=== PATIENT | male | born 1985 | race Caucasian/White ===

== ENCOUNTER 2020-04-25 07:50 | Outpatient (REF) | payer OTHER, SELFPAY | END 2020-04-25 07:51 | disposition home or self-care (01) | LOC: HO.LAB 07:50 | PROVIDERS: Visit Provider Internal Medicine | DX: Z20.822 Contact with and (suspected) exposure to COVID-19 (principal) | CPT/HCPCS: 36415; C9803; U0003; U0005 ==

== ENCOUNTER 2021-01-13 13:26 | Outpatient (REF) | payer OTHER, SELFPAY | END 2021-01-13 13:27 | disposition home or self-care (01) | LOC: HO.LAB 13:26 | PROVIDERS: Visit Provider Internal Medicine | DX: Z13.89 Encounter for screening for other disorder (principal) | CPT/HCPCS: C9803; U0003; U0005 ==

== ENCOUNTER 2021-01-15 08:02 | Outpatient (REF) | payer OTHER, SELFPAY ==
[2021-01-15 08:54] LABS: COVID-19 Test Positive (Negative)
== END 2021-01-15 08:03 | disposition home or self-care (01) ==
LOC: HO.LAB 08:02
PROVIDERS: Visit Provider Internal Medicine
DX: Z20.822 Contact with and (suspected) exposure to COVID-19 (principal)
CPT/HCPCS: 36415; 87635; C9803

== ENCOUNTER 2021-01-20 09:38 | Outpatient (REF) | payer OTHER, SELFPAY | END 2021-01-20 09:39 | disposition home or self-care (01) | LOC: HO.LAB 09:38 | PROVIDERS: Visit Provider Internal Medicine | DX: Z20.822 Contact with and (suspected) exposure to COVID-19 (principal) | CPT/HCPCS: C9803; U0003; U0005 ==

== ENCOUNTER 2022-04-21 07:45 | Emergency (ER) | payer MEDICAID, OTHER, SELFPAY ==
[2022-04-21] VITALS (8 sets, daily range): BP systolic 125–176; BP diastolic 76–119; PULSE 44–60; RESP 14–20; TEMP 35.8–36.8; O2SAT 98–99; BMI 35.7
--- NOTE | ~2022-04-21 | CT_ITS ---
EXAMINATION: CT HEAD WITHOUT CONTRAST CLINICAL INFORMATION: Dizziness COMPARISON: None TECHNIQUE: Contiguous axial imaging was performed from the skull base to vertex without intravenous administration of contrast. This CT examination was performed using dose optimization techniques as appropriate, variously including the following: *Automated exposure control *Adjustment of mA and/or kV according to patient size (this includes techniques or standardized protocols for targeted exams where dose is matched to indication/reason for exam; i.e. extremities or head) *Use of iterative reconstruction technique DLP: 747 mGy-cm FINDINGS: There is no midline shift. There is no mass effect. There is no hemorrhage. The basal cisterns appear patent. The posterior fossa is grossly within normal limits. There is no extra-axial collection. Whaley-white matter is grossly within normal limits. The ventricular system is within normal limits. Sinus disease noted in the maxillary sinuses. CT/CT head/brain wo IV con IMPRESSION: Negative acute noncontrast CT of the brain. If further evaluation is clinically warranted consider MR.
--- NOTE | 2022-04-21 07:54 | ECG_ITS ---
Test Reason : DISSINESS Blood Pressure : / mmHG Vent. Rate : 048 BPM Atrial Rate : 048 BPM P-R Int : 204 ms QRS Dur : 108 ms QT Int : 428 ms P-R-T Axes : 049 008 048 degrees QTc Int : 382 ms Sinus bradycardia Sinus Arrhythmia Normal ECG No previous ECGs available Referred By: Generic ED Physician Electronically Signed By:JUDY GIBBS
--- NOTE | 2022-04-21 08:07 | ED_ITS ---
HPI - Dizziness General Chief Complaint: Dizziness Stated Complaint: HBP/Dizziness Time Seen by Provider: 04/21/22 08:04 Source: patient Mode of arrival: ambulatory History of Present Illness HPI Narrative: 36-year-old male with a past medical history of substance abuse currently on methadone presenting to the ED complaining of intermittent room spinning dizziness worse with position changes x 4 days with associated intermittent headache. Admits symptoms last a few seconds and then resolve, intermittently throughout the day. Denies taking anticoagulation. Admits when to be stay ED last night, noted to be hypertensive during triage however LWT'd due to wait time. Denies history of hypertension or taking antihypertensive medications. Denies recent injury/fall or head trauma, vision change/loss, nausea/vomiting, paresthesias/numbness, weakness, CP/SOB MD elicited complaint: dizziness Related Data Previous Rx's Medication Instructions Recorded zpmoywencv-yunoflejeiypl-hmyplvzh 1 cap PO Q4-6H PRN headache #14 04/21/22 50 mg-300 mg-40 mg capsule caps (Fioricet) meclizine 25 mg tablet 25 mg PO TID PRN dizziness #14 tabs 04/21/22 Allergies Allergy/AdvReac Type Severity Reaction Status Date / Time No Known Allergies Allergy Unverified 11/01/19 15:49 [No Known Allergies*] Review of Systems Review of Systems: Constitutional: No Fever, No Chills, No Fatigue, No Malaise ENT/Mouth: No Ear Pain, No Nasal Congestion, No sore throat, No Rhinorrhea, No Swallowing Difficulty Eyes: No Eye Pain, No Swelling, No Redness, No Vision Changes Cardiovascular: No Chest Pain, No SOB, No Dyspnea on Exertion, No Orthopnea, No Edema, No Palpitations Respiratory: No Cough, No Sputum, No Dyspnea Gastrointestinal: No Nausea, No Vomiting, No Diarrhea, No Constipation, No Abdominal pain Genitourinary: No Dysuria, No Urinary Frequency, No Hematuria, No Urinary Incontinence/retention, No Hesitancy Musculoskeletal: No joint pain, No Myalgias, No Joint Swelling Skin: No Skin Lesions, No rash Neuro: No Weakness, No Numbness, No Paresthesias, No Loss of Consciousness, + Dizziness, + Headache Yes all other systems are reviewed and are negative Constitutional: Constitutional: Reports as per HPI Neurologic: Denies Abnormal speech present [facility] Past Medical History Attestation statement: The following information was validated with the patient. Social History Social History Smoked in Last 30 Days: No Advance Directives: No Advance Directives Information Provided: Yes Physical Exam Vital Signs: Vital Signs: Last Vital Signs Temp 97.7 F 04/21/22 14:35 Pulse 54 04/21/22 14:35 Resp 16 04/21/22 14:35 BP 143/81 H 04/21/22 14:35 Pulse Ox 98 04/21/22 14:35 O2 Del Method 04/21/22 14:35 BMI result Body Mass Index 35.7 Const: General: cooperative, healthy appearing and no acute distress Orientation/consciousness: patient oriented x3 Limitations: no limitations HEENT: Head: Yes normal to inspection and Yes atraumatic Ears: hearing gr ossly normal bilaterally General nose exam: Normal external nose present Face and sinus: Yes normal facial exam Throat: Yes posterior oropharynx normal, Yes tonsils normal and Yes uvula midline Eyes: General: appearance normal, both eyes and all related structures Pupils: Equal, round and reactive pupils present EOM: EOMs intact bilaterally Neck: Neck: Yes normal visual inspection, Yes no meningeal signs, Yes supple and No anterior neck swelling Resp: Effort & Inspection: normal respiratory effort and no respiratory distress Auscultation: clear to auscultation bilaterally Cardio: Rate: regular rate Heart sounds: S1 normal heart sound present and S2 normal heart sound present GI: Inspection: Yes normal to inspection Palpation (GI): Soft to palpation, nontender, no guarding and not rigid Skin: Rashes: no rashes Wounds: no wounds Neuro: General: patient oriented x3, gait normal, tone normal, moves all extremities, no meningeal signs, no focal motor deficits and CN's II-XI intact bilaterally Cranial nerves: Yes CN's II-XII intact bilaterally, Yes Equal, round and reactive pupils present and Yes Bilaterally intact EOM present Cognition (Neuro): normal cognition Speech: No Abnormal speech present Gait exam (Neuro): Normal gait present Motor exam (neuro): 5/5 motor strength present throughout and Pronator motor function not present Coordination: [id number]-js-[id number] test normal Romberg Test: Negative Extrem: General: Yes normal to inspection Course Course Course Narrative: -1237--blood pressure improved without intervention. Labs reassuring. Troponin negative -UA with protein, not infected. Tox screen positive for opiates and THC CT head/brain wo IV con IMPRESSION: Negative acute noncontrast CT of the brain. If further evaluation is clinically warranted consider MR. > orthostatic vital signs negative. On re-evaluation patient reports headache resolved. Admits just got up to use the bathroom and felt room spinning dizziness with position change. Will try Ativan/Benadryl and re-evaluate >1444--on re-evaluation patient reports symptomatic improvement. Feels safe for discharge home at this time Results discussed with patient including worrisome signs and symptoms and strict return precautions, and when to return to the emergency department. They verbalized understanding and feel safe for discharge at this time. Medications Administered Discontinued Medications Generic Name Dose Route Start Last Admin Trade Name Freq PRN Reason Stop Dose Admin Acetaminophen/Butalbital/Caffeine 1 tab 04/21/22 09:19 04/21/22 09:35 Butalb/Acetamin/Caff 50/325/40 Tablet PO 04/21/22 09:20 1 tab ONCE ONE Administration Diphenhydramine HCl 25 mg 04/21/22 12:42 04/21/22 13:07 Diphenhydramine Hcl 25 Mg Capsule PO 04/21/22 12:43 25 mg ONCE ONE Administration Lorazepam 1 mg 04/21/22 12:42 04/21/22 13:07 Lorazepam 1 Mg Tablet PO 04/21/22 12:43 1 mg ONCE ONE Administration Meclizine HCl 25 mg 04/21/22 08:37 04/21/22 08:47 Meclizine Hcl 25 Mg Tablet PO 04/21/22 08:38 25 mg ONCE ONE Administration Promethazine HCl 25 mg 04/21/22 13:46 04/21/22 14:51 Promethazine Hcl 25 Mg Tablet PO 04/21/22 13:47 25 mg ONCE ONE Administration Medical Decision Making Medical Decision Making MDM Narrative: 36-year-old male with a past medical history of substance abuse currently on methadone presenting to the ED complaining of intermittent room spinning dizzi ness worse with position changes x 4 days with associated intermittent headache. On exam hypertensive initially 158/104, no focal neuro deficits, asymptomatic when lying still in bed, dizziness elicited on position change. Concern for BPPV/vertigo vs hypertensive urgency/emergency. Rule out ACS. Low suspicion for PE. Lower suspicion for ICH, TIA/CVA Plan: EKG, labs, UA, orthostatics, +/-head CT, re-evaluate Please refer to course for remaining clinical decision making, interpretation of labs/imaging results, and discussions with consultants and/or family members. Differential Diagnosis Differential Diagnoses: The differential diagnosis associated with the presentation includes as above Admission/Observation Consideration of admission/observation: Escalation of care including admission/observation considered Lab Data MDM Lab Attestation statement: I reviewed the patient's lab results. 04/21/22 08:02 04/21/22 08:03 Labs: Lab Results 04/21/22 04/21/22 04/21/22 Range/Units 08:02 08:03 08:03 WBC 6.9 (4.8-10.8) X10*3/uL RBC 5.24 (4.60-5.80) X10*6/uL Hgb 16.0 (14.0-18.0) g/dl Hct 46.9 (42.0-52.0) % MCV 89.5 (80.0-98.0) fL MCH 30.5 (27.0-33.0) pg MCHC 34.1 (31.0-36.0) g/dl RDW 14.2 (11.0-16.0) % Plt Count 303 (160-400) X10*3/uL MPV 10.3 (9.4-12.4) fL Immature Gran % (Auto) 0.3 (0.0-0.4) % Neut % (Auto) 33.9 L (45-73) % Lymph % (Auto) 44.5 H (20-40) % Hudspeth % (Auto) 14.3 H (2-11) % Eos % (Auto) 6.7 H (0-4) % Baso % (Auto) 0.3 (0-2) % Lymph # (Auto) 3.1 (1.2-4.9) X10*3/uL Hudspeth # (Auto) 1.0 (0.1-1.2) X10*3/uL Eos # (Auto) 0.5 H (0.0-0.4) X10*3/uL Baso # (Auto) 0.0 (0.0-0.2) X10*3/uL Abs Immat Gran (auto) 0.02 (0.00-0.03) X10*3/uL Absolute Neuts (auto) 2.3 (2.0-8.3) x10*3/uL Absolute Nucleated RBC 0.000 (0.0-0.012) X10*3/uL Nucleated RBC % (auto) 0.0 (0.0-0.2) /100WBC Sodium 143 (135-145) mmol/L Potassium 4.0 (3.3-5.1) mmol/L Chloride 104 (96-108) mmol/L Carbon Dioxide 31 H (22-29) mmol/L Anion Gap 12 (12-20) BUN 11 (9-16) mg/dL Creatinine 1.18 (0.5-1.4) mg/dL Estim Creat Clear Calc 102.4 Estimated GFR > 60 Random Glucose 77 (60-115) mg/dL Calcium 9.5 (8.4-10.2) mg/dL Magnesium 1.7 (1.6-2.6) mg/dL Total Bilirubin 0.6 (0.0-1.0) mg/dL Direct Bilirubin 0.2 (0.0-0.5) mg/dL AST 33 (5-37) U/L ALT 96 H (0-40) U/L Alkaline Phosphatase 75 (39-117) U/L Troponin I High Sens < 3.5 (<3.5-35.0) ng/L Total Protein 7.6 (6.5-8.0) g/dL Albumin 4.7 (3.5-5.0) g/dL Lipase 13 (8-78) U/L Urine Color Urine Appearance Urine pH (5.0-9.0) Ur Specific Elida (1.005-1.025) Urine Protein (Neg-Trace) mg/dL Urine Glucose (UA) (Negative) mg/dL Urine Ketones (Negative) mg/dL Urine Blood (Negative) Urine Nitrite (Negative) Ur Leukocyte Esterase (Negative) Urine RBC (0-2) /HPF Urine WBC (0-5) /HPF Ur Squamous Epith Cells (0-2) /HPF Urine Bacteria (None Seen) Hyaline Casts (0-2) /LPF Urine Opiates Screen (Not Detect) Urine Fentanyl Screen (Not Detect) Ur Barbiturates Screen (Not Detect) Ur Phencyclidine Scrn (Not Detect) Ur Amphetamines Screen (Not Detect) U Benzodiazepines Scrn (Not Detect) Urine Cocaine Screen (Not Detect) U Marijuana (THC) Screen (Not Detect) COVID-19 (KELLY) (Negative) COVID-19 Clin Com 04/21/22 04/21/22 04/21/22 Range/Units 08:03 09:02 09:02 WBC (4.8-10.8) X10*3/uL RBC (4.60-5.80) X10*6/uL Hgb (14.0-18.0) g/dl Hct (42.0-52.0) % MCV (80.0-98.0) fL MCH (27.0-33.0) pg MCHC (31.0-36.0) g/dl RDW (11.0-16.0) % Plt Count (160-400) X10*3/uL MPV (9.4-12.4) fL Immature Gran % (Auto) (0.0-0.4) % Neut % (Auto) (45-73) % Lymph % (Auto) (20-40) % Hudspeth % (Auto) (2-11) % Eos % (Auto) (0-4) % Baso % (Auto) (0-2) % Lymph # (Auto) (1.2-4.9) X10*3/uL Hudspeth # (Auto) (0.1-1.2) X10*3/uL Eos # (Auto) (0.0-0.4) X10*3/uL Baso # (Auto) (0.0-0.2) X10*3/uL Abs Immat Gran (auto) (0.00-0.03) X10*3/uL Absolute Neuts (auto) (2.0-8.3) x10*3/uL Absolute Nucleated RBC (0.0-0.012) X10*3/uL Nucleated RBC % (auto) (0.0-0.2) /100WBC Sodium (135-145) mmol/L Potassium (3.3-5.1) mmol/L Chloride (96-108) mmol/L Carbon Dioxide (22-29) mmol/L Anion Gap (12-20) BUN (9-16) mg/dL Creatinine (0.5-1.4) mg/dL Estim Creat Clear Calc Estimated GFR Random Glucose (60-115) mg/dL Calcium (8.4-10.2) mg/dL Magnesium (1.6-2.6) mg/dL Total Bilirubin (0.0-1.0) mg/dL Direct Bilirubin (0.0-0.5) mg/dL AST (5-37) U/L ALT (0-40) U/L Alkaline Phosphatase (39-117) U/L Troponin I High Sens (<3.5-35.0) ng/L Total Protein (6.5-8.0) g/dL Albumin (3.5-5.0) g/dL Lipase (8-78) U/L Urine Color Dark Yellow Urine Appearance Clear Urine pH 6.5 (5.0-9.0) Ur Specific Elida >= 1.030 H (1.005-1.025) Urine Protein 30 (1+) H (Neg-Trace) mg/dL Urine Glucose (UA) Negative (Negative) mg/dL Urine Ketones Trace (Negative) mg/dL Urine Blood Negative (Negative) Urine Nitrite Negative (Negative) Ur Leukocyte Esterase Negative (Negative) Urine RBC 0-2 (0-2) /HPF Urine WBC 0-5 (0-5) /HPF Ur Squamous Epith Cells 0-2 (0-2) /HPF Urine Bacteria None Seen (None Seen) Hyaline Casts 0-2 (0-2) /LPF Urine Opiates Screen POSITIVE H (Not Detect) Urine Fentanyl Screen Not Detected (Not Detect) Ur Barbiturates Screen Not Detected (Not Detect) Ur Phencyclidine Scrn Not Detected (Not Detect) Ur Amphetamines Screen Not Detected (Not Detect) U Benzodiazepines Scrn Not Detected (Not Detect) Urine Cocaine Screen Not Detected (Not Detect) U Marijuana (THC) Screen POSITIVE H (Not Detect) COVID-19 ([facility]) Negative (Negative) COVID-19 Clin Com See Note Independent Interpretation I performed an independent interpretation of an: EKG Interpretation: My interpretation sinus bradycardia with PACs at a rate of 48. QTC 382. No STEMI. Radiology Impression Discussion of test interpretation with radiology: I have reviewed the radiologist's reading. External Record Review External record reviewed: Outpatient record and Prior outpatient labs Chronic Conditions Patient?s care impacted by: Other Discharge Plan Discharge Clinical Impression: Benign paroxysmal positional vertigo Patient Disposition: Home, Self-Care Instructions: Benign Paroxysmal Positional Vertigo (ED) Additional Instructions: Your blood work, urine, and CT scan were reassuring today. Please follow-up with her primary care doctor and ENT specialist Fioricet is for headaches, take as needed, be aware this is Tylenol mixed in, do not exceed 4 g in 1 day Meclizine is for dizziness If symptoms persist or worsen/become more constant, you vision change or loss, persistent or worsening headache, chest pain or shortness breath return to the ED Prescriptions: New meclizine 25 mg tablet 25 mg PO TID PRN (Reason: dizziness) Qty: 14 0RF oxideguipv-fsmwrvewlksye-yfyz [Fioricet] 50-300-40 mg capsule 1 cap PO Q4-6H PRN (Reason: headache) Qty: 14 0RF Referrals: Haris Adan [Physician] - Interventions: ED Discharge Assessment Last Done: 04/21/22 14:56 Discharge Date/Time: 04/21/22 14:56
[2022-04-21 08:19] LABS: MANUAL DIFF FLAG NO
[2022-04-21 08:23] LABS: Basophils Percent Auto 0.3 % (0-2); Eosinophils Absolute Auto 0.5 X10*3/uL (0.0-0.4); Eosinophils Percent Auto 6.7 % (0-4); Hematocrit 46.9 % (42.0-52.0); Imm Gran Abs Auto 0.02 X10*3/uL (0.00-0.03); Imm Gran Pct Auto 0.3 % (0.0-0.4); Lymphocytes Absolute Auto 3.1 X10*3/uL (1.2-4.9); Lymphocytes Percent Auto 44.5 % (20-40); Mean Corpuscular HGB Conc 34.1 g/dl (31.0-36.0); Mean Corpuscular Hemoglobin 30.5 pg (27.0-33.0); Mean Corpuscular Volume 89.5 fL (80.0-98.0); Mean Platelet Volume 10.3 fL (9.4-12.4); Monocytes Percent Auto 14.3 % (2-11); Neutrophils Absolute Auto 2.3 x10*3/uL (2.0-8.3); Neutrophils Percent Auto 33.9 % (45-73); Platelet Count 303 X10*3/uL (160-400); Red Blood Count 5.24 X10*6/uL (4.60-5.80); Red Cell Distribution Width 14.2 % (11.0-16.0); White Blood Count 6.9 X10*3/uL (4.8-10.8)
[2022-04-21 08:35] LABS: COVID-19 Test Negative (Negative); IDNOW Serial# 16C4AD1C
[2022-04-21 08:37] LABS: Alanine Aminotransferase 96 U/L (0-40); Albumin Level 4.7 g/dL (3.5-5.0); Alkaline Phosphatase 75 U/L (39-117); Anion Gap 12 (12-20); Aspartate Amino Transferase 33 U/L (5-37); Bilirubin Direct 0.2 mg/dL (0.0-0.5); Bilirubin Total 0.6 mg/dL (0.0-1.0); Blood Urea Nitrogen 11 mg/dL (9-16); Calcium 9.5 mg/dL (8.4-10.2); Carbon Dioxide 31 mmol/L (22-29); Chloride 104 mmol/L (96-108); Creatinine Clr Calc Pharmacy 102.4; Estimated Glomerular Filt Rate > 60; Glucose Random 77 mg/dL (60-115); Lipase 13 U/L (8-78); Sodium 143 mmol/L (135-145); Total Protein 7.6 g/dL (6.5-8.0)
[2022-04-21 08:41] LABS: Troponin-I High Sensitivity < 3.5 ng/L (<3.5-35.0)
[2022-04-21] MEDS: Meclizine HCl 25 MG TABLET PO (08:47)
[2022-04-21 09:04] LABS: Magnesium 1.7 mg/dL (1.6-2.6)
[2022-04-21 09:13] LABS: Appearance Urine Clear; Color Urine Dark Yellow; Glucose Urine UA Negative (Negative); Leukocyte Esterase Urine Negative (Negative); Nitrite Urine Negative (Negative); PH 6.5 (5.0-9.0); Specific Gravity - Urine >= 1.030 (1.005-1.025); UMIC TRIGGER UACC YES; Urine Blood Negative (Negative); Urine Ketones Trace mg/dL (Negative); Urine Protein 30 (1+) mg/dL (Neg-Trace)
[2022-04-21 09:20] LABS: Amphetamine Screen Urine Not Detected (Not Detect); Barbiturates, Urine Not Detected (Not Detect); Benzodiazepines Screen Urine Not Detected (Not Detect); Cannabinoid Screen Urine POSITIVE (Not Detect); Cocaine Screen Urine Not Detected (Not Detect); Fentanyl, urine Not Detected (Not Detect); Opiate Screen Urine POSITIVE (Not Detect); Phencyclidine Screen Urine Not Detected (Not Detect)
[2022-04-21 09:21] LABS: Bacteria Urine None Seen (None Seen); Hyaline Casts Urine 0-2 /LPF (0-2); RBC Urine 0-2 /HPF (0-2); Squamous Epithelial Cell Urine 0-2 /HPF (0-2); WBC Urine 0-5 /HPF (0-5)
[2022-04-21] MEDS: Butalb/Acetamin/Caff 50/325/40 TABLET 1 TAB PO (09:35)
--- NOTE | 2022-04-21 10:51 | PC.NURSE ---
Headache relieved after medication given. Patient reporting dizziness while sitting up at CT scan. Remains laying in stretcher at this time.
--- NOTE | 2022-04-21 11:29 | PC.NURSE ---
Patient ambulating to bathroom independently with steady gait. Reports dizziness going from laying to sitting.
[2022-04-21] MEDS: diphenhydrAMINE HCL 25 MG CAPSULE PO (13:07)
[2022-04-21] MEDS: LORazepam 1 MG TABLET PO (13:07)
[2022-04-21] MEDS: Promethazine HCL 25 MG TABLET PO (14:51)
== END 2022-04-21 14:56 | disposition home or self-care (01) ==
PROVIDERS: Physician Assistant; Emergency Provider Emergency Medicine Emergency Medical Services
DX: H81.10 Benign paroxysmal vertigo, unspecified ear (principal); R51.9 Headache, unspecified; Z20.822 Contact with and (suspected) exposure to COVID-19; F19.10 Other psychoactive substance abuse, uncomplicated; F11.20 Opioid dependence, uncomplicated; Z79.899 Other long term (current) drug therapy
CPT/HCPCS: 36415; 70450; 80048; 80076; 80307; 81001; 83690; 83735; 84484; 85025; 87635; 93005; 99285

== ENCOUNTER → 2022-04-28 14:24 | Outpatient (BNVA) | payer SELFPAY | DX: Z02.89 Encounter for other administrative examinations (principal) ==

== ENCOUNTER 2022-07-22 07:37 | Emergency (ER) | payer OTHER, SELFPAY ==
--- NOTE | ~2022-07-22 | XR_ITS ---
EXAMINATION: XR LEFT FOOT, 3 VIEWS XR LEFT ANKLE, 2 VIEWS CLINICAL INFORMATION: Twisted COMPARISON: Left foot and ankle radiographs from 10/20/2007 TECHNIQUE: Left foot 3 views, left ankle 2 views FINDINGS: No acute visible fracture or dislocation. Ankle mortise is symmetric. Slight pes planus. Joint spaces and alignment are otherwise maintained. Soft tissues are unremarkable. XR/XR foot LT min 3V IMPRESSION: 1. No acute visible fracture or dislocation. 2. Slight pes planus.
--- NOTE | ~2022-07-22 | XR_ITS ---
EXAMINATION: XR LEFT FOOT, 3 VIEWS XR LEFT ANKLE, 2 VIEWS CLINICAL INFORMATION: Twisted COMPARISON: Left foot and ankle radiographs from 10/20/2007 TECHNIQUE: Left foot 3 views, left ankle 2 views FINDINGS: No acute visible fracture or dislocation. Ankle mortise is symmetric. Slight pes planus. Joint spaces and alignment are otherwise maintained. Soft tissues are unremarkable. XR/XR ankle LT min 3V IMPRESSION: 1. No acute visible fracture or dislocation. 2. Slight pes planus.
[2022-07-22 07:47] VITALS: BP 146/66; PULSE 48; RESP 19; TEMP 36.6; O2SAT 99; BMI 35.7
[2022-07-22 07:51] VITALS: BP 146/106; PULSE 102; RESP 16; TEMP 36.7; O2SAT 97
[2022-07-22 07:55] VITALS: BP 146/66; PULSE 102; RESP 18; O2SAT 99
--- NOTE | 2022-07-22 07:57 | PC.NURSE ---
Alert and oriented. Arrived from home stating yesterday when he was done with work he was getting out of a truck and stepped on an uneven surface causing him to twist his left ankle and fall. may have heard a snap or pop but is unsure. was able to walk on ankle to get home but woke up during the night and was unable to put pressure on left foot. Left foot swollen and tender. No bruising noted. Unable to turn ankle side to side. Denies numbness and tingling. Able to wiggle toes. reports 7/10 pain. Taken to x ray at this time
[2022-07-22] MEDS: Ibuprofen 800 MG TABLET PO (08:59)
--- NOTE | 2022-07-22 09:09 | ED_ITS ---
HPI - Extremity Injury (Lower) General Chief Complaint: Extremity Injury, Lower Stated Complaint: L ankle pain Time Seen by Provider: 07/22/22 07:52 Source: patient Mode of arrival: ambulatory Limitations: no limitations History of Present Illness HPI Narrative: 36-year-old male presents with left foot pain. Symptoms started yesterday. Patient's symptoms are moderate to severe in nature. There was with ambulation. They do not radiate. Associated soft tissue swelling. Patient was stepping off a truck onto uneven ground when his foot had an inversion injury. Patient denies any numbness or tingling. Related Data Previous Rx's Medication Instructions Recorded arerbazyys-xkcfkwpbdytlo-cyjmozxe 1 cap PO Q4-6H PRN headache #14 04/21/22 50 mg-300 mg-40 mg capsule caps (Fioricet) meclizine 25 mg tablet 25 mg PO TID PRN dizziness #14 tabs 04/21/22 Allergies Allergy/AdvReac Type Severity Reaction Status Date / Time No Known Allergies Allergy Verified 07/22/22 07:47 [No Known Allergies*] Review of Systems Review of Systems: CONSTITUTIONAL: Denies weight loss, fever and chills. HEENT: Denies changes in vision and hearing. RESPIRATORY: Denies SOB and cough. CV: Denies palpitations no CP. GI: Denies abdominal pain, nausea, vomiting and diarrhea. : Denies dysuria and urinary frequency. MSK: See HPI. SKIN: Denies rash and pruritus. NEUROLOGICAL: Denies headache and syncope. PSYCHIATRIC: Denies recent changes in mood. Denies anxiety and depression. All other ROS are negative unless in HPI PMFSH Social History Social History Alcohol intake: never Smoked in Last 30 Days: No Use of substances other than those prescribed or required for medical reasons: Yes Substance Use Type: Marijuana Substance Use Frequency: Chronic Longstanding Last Used Substance: Days (ago) Advance Directives: No Advance Directives Information Provided: No Physical Exam Vital Signs: Vital Signs: Last Vital Signs Temp 98.0 F 07/22/22 07:51 Pulse 102 H 07/22/22 07:55 Resp 18 07/22/22 07:55 BP 146/66 H 07/22/22 07:55 Pulse Ox 99 07/22/22 07:55 O2 Del Method Room Air 07/22/22 07:55 BMI result Body Mass Index 35.7 GEN: Well developed, no acute distress, alert, oriented HEENT: Normocephalic, atraumatic, normal external ears, nose appears normal Eyes: Normal to appearance Neck: Supple, no lymphadenopathy Respiratory: Talks in complete sentences, no respiratory distress Extremities: No clubbing cyanosis or edema, soft tissue swelling to the dorsal aspect of the left foot, tenderness of the dorsal area, no medial or lateral malleolus tenderness, swelling. Neurovascular intact Neurologic: No focal neurologic deficits, cranial nerves 2-12 intact, gait normal Skin: No rash Course Course Course Narrative: Patient presents with acute left traumatic the pain. Examination revealed tenderness and swelling to the dorsal aspect of the foot. He was neurovascular intact. X-rays negative for fracture or dislocation. Patient will be discharged to follow-up with orthopedics or wealth management consultant as needed. Medications Administered Discontinued Medications Generic Name Dose Route Start Last Admin Trade Name Freq PRN Reason Stop Dose Admin Ibuprofen 800 mg 07/22/22 08:15 07/22/22 08:59 Ibuprofen 800 Mg Tablet PO 07/22/22 08:16 800 mg ONCE ONE Administration Medical Decision Making Medical Decision Making [facility] Narrative: Patient presents with acute traumatic left foot pain. Examination revealed tenderness to the dorsal aspect of the foot. There is soft tissue swelling. Neurovascular intact. Will obtain an x-ray and provide patient with NSAIDs. Differential Diagnosis Differential Diagnoses: The differential diagnosis associated with the presentation includes (Fracture, sprain, strain, contusion) Left foot pain Independent Interpretation I performed an independent interpretation of an: Plain X-Ray (No acute fracture or subluxation) Prescription Management I considered prescription management with: Pain Medication Discharge Plan Discharge Clinical Impression: Acute pain of left foot Patient Disposition: Home, Self-Care Instructions: Arthralgia (ED) Prescriptions: No Action meclizine 25 mg tablet 25 mg PO TID PRN (Reason: dizziness) Qty: 14 0RF mfifedjsjo-vxyjaapdkljmv-tmwm [Fioricet] 50-300-40 mg capsule 1 cap PO Q4-6H PRN (Reason: headache) Qty: 14 0RF Referrals: Miki Arnett MD [Physician] - 10 days
--- NOTE | 2022-07-22 09:55 | PC.NURSE ---
Alert and oriented. Reports pain improved after being medicated. Reviewed discharge instructions and patient verbalized understanding.
== END 2022-07-22 09:56 | disposition home or self-care (01) ==
PROVIDERS: Emergency Provider Emergency Medicine
DX: G89.11 Acute pain due to trauma (principal); M25.572 Pain in left ankle and joints of left foot
CPT/HCPCS: 73610; 73630; 99283; 99284

== ENCOUNTER 2024-08-31 08:37 | Outpatient (AMB) | payer BC, SELFPAY ==
--- OUTSIDE RECORDS SUMMARY | 2024-08-31 08:40 | XMS_ITS | Clinical Summary ---
Author Organization [address] Address [address] [place] [address] Phone Care Team Providers Care Human Relations Teacher Name Role Phone Alhaji Lizarraga MD Primary Care Provider Allergies No known active allergies Medications naltrexone microspheres (VIVITROL IM) Inject into the shoulder, thigh, or buttocks every 30 (thirty) days. Active Active Problems Problem Noted Date Diagnosed Date S/P appendectomy 06/07/2024 Anxiety and depression 06/17/2020 Chronic back pain 06/17/2020 Encounters Date Type Department Care Team Description 07/19/2024 8:15 AM EDT Office Visit Adult [address] [phone] Alhaji Lizarraga MD Elevated BP without diagnosis of hypertension (Primary Dx); Substance use disorder 06/07/2024 4:00 PM EDT Office Visit Adult [address] [phone] Jennifer Alvarez PA Adult general medical examination (Primary Dx); History of drug use; Snoring; Chronic pain of right ankle; Screening for diabetes mellitus; Screening, lipid 06/07/2024 Telephone Adult [address] [phone] Jennifer Alvarez PA from Last 3 Months Surgical History Surgery Date Site/Laterality Comments KNEE SURGERY 2014 Right PROCEDURE: HISTORICAL KNEE SURGERY ANKLE SURGERY 2017 Right PROCEDURE: HISTORICAL ANKLE SURGERY; COMMENT: Pins and Rods in ankle. Medical History Medical History Date Comments Drug abuse (CMS/HCC V24, CMS/HCC V28) DX:Drug abuse (HCC) Lumbar back pain DX:Lumbar back pain Family History Medical History Relation Name Comments Drug abuse Father Hyperlipidemia Mother Hypertension Mother Other: pacemaker Sister Relation Name Status Comments Father Mother Sister Social History Tobacco Use Types Packs/Day Years Used Date Smoking Tobacco: Never Smokeless Tobacco: Never Tobacco Cessation:Counseling Given: Not Answered Alcohol Use Standard Drinks/Week Comments Not Currently 0 (1 standard drink = 0.6 oz pur e alcohol) Housing Instability Answer Date Recorde d Are you worried that in the next 2 months you may not have stable housing? No 06/07/2024 Food Access & Nutrition Answer Date Rec orded Do you have access to a vari ety of food including fruits and vegetables? Yes 06/07/2024 Access to Healthcare Answer Date Record ed Within the last 3 months, ho w many times did you visit the emergency department for your medical care? 2 06/07/2024 Health Literacy Answer Date Recorded How often do you need to hav e someone help you when you read instructions, pamphlets, or other written material from your doctor or pharmacy? Often 06/07/2024 Caregiver: How often do you need to have someone help you when you read instructions, pamphlets, or other written material from your doctor or pharmacy? Not on file 06/07/2024 Financial Risk Answer Date Recorded How hard is it for you to pa y for the very basics like food, housing, medical care, and air conditioning / heating? Not very hard 06/07/2024 Transportation Answer Date Recorded Has the lack of transportati on kept you from meetings, work, or from getting things needed for daily living? No Has the lack of transportati on kept you from medical appointments or from getting medications? No 06/07/2024 Social Isolation Answer Date Recorded How often do you feel lonely or isolated from th ose around you? Never 06/07/2024 Food Risk Answer Date Recorded Within the past 12 months we worried whether our food would run out before we got money to buy more. Never true 06/07/2024 Within the past 12 months th e food we bought just didn't last and we didn't have money to get more. Never true 06/07/2024 Dependent Care Answer Date Recorded Do you need help finding or paying for care for your loved ones. For example, child care director or elderly care for an older adult? No 06/07/2024 Education Answer Date Recorded Do you think completing more education or training, like finishing a GED, going to college, or learning a trade, would be helpful for you? No 06/07/2024 Employment and Income Answer Date Recor ded During the last four weeks, have you been actively looking for work? Yes 06/07/2024 Living Situation Answer Date Recorded What is your living situation? 0 06/07/2024 Sex and Gender Information Value Date Recorded Sex Assigned at Not on file Legal Sex Male 11:32 PM EST Gender Identity Not on file Sexual Orientation Not on file Obstetrics History Last Filed Vital Signs Vital Sign Reading Time Taken Comments Blood Pressure 128/86 07/19/2024 8:20 AM EDT Pulse 60 07/19/2024 8:03 AM EDT Temperature 36.5 C (97.7 F) 07/19/2024 8:03 AM EDT Respiratory Rate 11 07/19/2024 8:03 AM EDT Oxygen Saturation 97% 06/07/2024 4:03 PM EDT Inhaled Oxygen Concentration - - Weight 107 kg (236 lb) 07/19/2024 8:03 AM EDT Height 172.7 cm (5' 8 ) 07/19/2024 8:03 AM EDT Body Mass Index 35.88 07/19/2024 8:03 AM EDT Plan of Treatment Upcoming Encounters Date Type Department Care Team (Late st Contact Info) Description 11/19/2024 4:00 PM EDT Office Visit Adult Medicine [address] [phone] Alhaji Lizarraga MD [address] [place] [id number] Health Maintenance Due Date Last Done Comments Hepatitis B Vaccines (1 of 3 - 19+ 3-dose series) 2004 Cholesterol Screening (Lipid Panel) 01/17/2022 HIV Screening 01/17/2022 Hepatitis C Screening 01/17/2022 COVID-19 Vaccine ( - 2023-2 5 season) 2023 Influenza Vaccine (#1) 2024 Depression Screening 06/07/2025 06/07/2024 Social Influencers of Health Screening 06/07/2025 06/07/2024 DTaP,Tdap,and Td Vaccines (2 - Td or Tdap) 10/12/2030 10/12/2020 HIB Vaccines Aged Out No longer eligi ble based on patient's age to complete this topic HPV Vaccines Aged Out No longer eligi ble based on patient's age to complete this topic Hepatitis A Vaccines Aged Out No long er eligible based on patient's age to complete this topic IPV Vaccines Aged Out No longer eligi ble based on patient's age to complete this topic MMR Vaccines Aged Out No longer eligi ble based on patient's age to complete this topic Meningococcal ACWY Vaccine Aged Out N o longer eligible based on patient's age to complete this topic Meningococcal B Vaccine Aged Out No l onger eligible based on patient's age to complete this topic Pneumococcal Vaccine: Pediat rics (0 to 5 Years) and At-Risk Patients (6 to 49 Years) Aged Out No longer eligi ble based on patient's age to complete this topic RSV Immunization Patients Un davion 20 months Aged Out No longer eligible b ased on patient's age to complete this topic Varicella Vaccines Aged Out No longer eligible based on patient's age to complete this topic Insurance MEDICAID - [place] [facility] CIG[employer] Care Teams Human Relations Teacher Relationship Specialty Start Date End Date Alhaji Lizarraga MD [address] [place] [address] PCP - General Internal Medicine 07/07/21
--- OUTSIDE RECORDS SUMMARY | 2024-08-31 08:40 | XMS_ITS | Encounter Summary ---
Author Organization [employer] Address [address] [facility] [address] [place] [address] Care Team Providers Care Electric Meter Installer Name Role Phone Unavailable Primary Care Provider Unavailabl e Encounter Details Date Type Department Care Team (Late st Contact Info) Description 03/10/[address] [facility] [address] [place], [place] [phone] Cleo Burroughs BDS [address] [place], [place] [phone] Social History Tobacco Use Types Packs/Day Years Used Date Smoking Tobacco: Never Smokeless Tobacco: Never Sex and Gender Information Value Date Recorded Sex Assigned at Male 12/14/2021 10:28 AM EDT Legal Sex Male 10:28 AM EDT Gender Identity Male 05/03/2022 9:58 AM EDT Sexual Orientation Straight 05/03/2022 9: 58 AM EDT documented as of this encounter Plan of Treatment Not on file documented as of this encounter Visit Diagnoses Not on filedocumented in this encounter
--- NOTE | 2024-08-31 08:41 | A.OFFVIS_ITS ---
Vital Signs 08/31/24 09:05 Height 5 ft 8 in Weight 240 lb BMI 36.5 Intake Visit Reasons: New Pt-Right Ankle Pain-Bimalleolar ORIF 01/14/2017 Intake Note: Fredy is a 38 year old male who presents today as a New Patient with complaints of Right Ankle/Foot Pain. Hx of right bimalleolar ORIF 01/14/2017 NE. Patient reports pain at the medial aspect of ankle that comes and goes. His pain has been present for about 2-3 years. His pain increases with being at work, due to always being on his feet. Denies any injury. Allergies No Known Allergies (No Known Allergies*) Allergy (Verified 08/31/24 09:09) Medication List - Last Reconciled 08/31/24 by Faustino Earl PA-C [Anti-pronation orthotics Anti-pronation orthotics] naltrexone microspheres ER (Vivitrol) 380 mg IM Q4W HPI HPI New Pt-Right Ankle Pain-Bimalleolar ORIF 01/14/2017: Details: 38-year-old gentleman presents to the office today for ongoing right ankle pain. He had a right ankle ORIF on 01/14/[address] Arnett. He states the surgery was successful and he did do postoperative physical therapy. Over the last 2-3 years he has noticed progressively worsening pain with prolonged standing and impact type activities. He works outside doing asphalt/paving and finds at the end of the day his ankle is painful. No recent treatment such as physical therapy or braces. [facility] Social History Alcohol intake: never Substance Use Type: Marijuana Review of Systems Const All systems reviewed & are unremarkable except as noted in HPI and below Physical Exam Vital Signs: BMI result Body Mass Index 36.5 Const General: cooperative and no acute distress Orientation/consciousness: patient oriented x3 Resp Effort & Inspection: normal respiratory effort and able to speak in complete sentences Cardio Peripheral pulses: Peripheral pulses 2+ throughout Neuro General: patient oriented x3 Extrem Other: Right ankle is normal to inspection. Surgical scars well healed. He has full range of motion without crepitus or instability. He also has evidence of pes planus bilaterally. Results Reviewed Results Reviewed: X-rays of the right ankle obtained in the office today show intact orthopedic hardware. Ankle mortise intact. There is evidence of posttraumatic arthritis. Assessment & Plan Assessment & Plan (1) Status post ORIF of fracture of ankle: Code(s): Z98.890 - Other specified postprocedural states; Z87.81 - Personal history of (healed) traumatic fracture Category: Surgical (2) Post-traumatic osteoarthritis, right ankle and foot: Code(s): M19.171 - Post-traumatic osteoarthritis, right ankle and foot Category: Medical (3) Pes planus of both feet: Code(s): M21.41 - Flat foot [pes planus] (acquired), right foot; M21.42 - Flat foot [pes planus] (acquired), left foot Category: Medical Plan We discussed options today which includes modification of activity. He was fit for a lace-up ankle brace to wear while at work and with any type of impact activity. I also gave him a prescription for anti pronation orthotics to help with his pes planus. I also put in an order for physical therapy to work on strengthening and proprioceptive training exercises to help with his stability and hopefully prolong the longevity of the joint in preventing further or worsening arthritis. With the patient has any worsening symptoms or concerns he can call our office otherwise follow up as needed. Orders: Orders XR ankle RT min 3V Today M25.571 - Pain in right ankle and joints of right foot Medications: New [Anti-pronation orthotics] Anti-pronation orthotics 1 ea 0RF pes planus M21.41 - Flat foot [pes planus] (acquired), right foot, M21.42 - Flat foot [pes planus] (acquired), left foot Discontinued meclizine Discontinued Reason: Patient no longer taking 25 mg PO TID PRN 14 tabs 0RF dizziness uoqtiszhjv-uafixpyplvjrm-jssz 50-300-40 mg (Fioricet) Discontinued Reason: Patient no longer taking 1 cap PO Q4-6H PRN 14 caps 0RF headache Coding Level of Care Code New Pt Level 3 (49329) Complex EM visit Add On G2211 Diagnoses Status post ORIF of fracture of ankle Z98.890; Z87.81 Post-traumatic osteoarthritis, right ankle and foot M19.171 Pes planus of both feet M21.41; M21.42
[2024-08-31 09:05] VITALS: BMI 36.5
== END 2024-08-31 09:52 | disposition home or self-care (01) ==
LOC: HO.HOS 08:38
PROVIDERS: PCP Internal Medicine; Visit Provider Physician Assistant
DX: Z87.81 Personal history of (healed) traumatic fracture (principal); Z98.890 Other specified postprocedural states; M19.171 Post-traumatic osteoarthritis, right ankle and foot; M21.41 Flat foot [pes planus] (acquired), right foot; M21.42 Flat foot [pes planus] (acquired), left foot
CPT/HCPCS: 99203

== ENCOUNTER → 2024-08-31 08:53 | Outpatient (BNV) | payer BC, SELFPAY | PROVIDERS: Visit Provider Radiology Diagnostic Radiology | DX: M19.071 Primary osteoarthritis, right ankle and foot (principal) | CPT/HCPCS: 73610 ==

== ENCOUNTER 2024-08-31 09:07 | Outpatient (REF) | payer BC, SELFPAY ==
--- NOTE | ~2024-08-31 | XR_ITS ---
CLINICAL HISTORY: M25.571 - Pain in right ankle and joints of right foot Exam: AP, lateral, and mortise views of the right ankle. Comparison: None. Findings: Lateral plate and screw device is seen within the distal fibula. Two surgical screws are seen within the distal tibia from the medial malleolus to the distal metaphysis. Healed fracture deformities are identified at both surgical sites. No acute fractures are identified. Overall alignment is anatomic. Truc-ix-jtrjtfuk degenerative change of the ankle joints. Mild degenerative change of the talonavicular articulation. Impression: Postsurgical changes above with ghfq-jm-whoypaon ankle joint DJD. This document has been electronically signed by: Zia Summers MD on 09/01/2024 08:18:17
--- OUTSIDE RECORDS SUMMARY | 2024-09-03 09:23 | XMS_ITS | Clinical Summary ---
Author Organization [address] Address [address] [place] [address] Phone Care Team Providers Care Channel Cementer Insole Machine Name Role Phone Alhaji Lizarraga MD Primary Care Provider [phone] Allergies No known active allergies Medications naltrexone microspheres (VIVITROL IM) Inject into the shoulder, thigh, or buttocks every 30 (thirty) days. Active Active Problems Problem Noted Date Diagnosed Date S/P appendectomy 06/07/2024 Anxiety and depression 06/17/2020 Chronic back pain 06/17/2020 Encounters Date Type Department Care Team Description 07/19/2024 8:15 AM EDT Office Visit Adult [address] [phone] Alhaij Lizarraga MD Elevated BP without diagnosis of hypertension (Primary Dx); Substance use disorder 06/07/2024 4:00 PM EDT Office Visit Adult [address] [phone] Jennifer Alvarez PA Adult general medical examination (Primary Dx); History of drug use; Snoring; Chronic pain of right ankle; Screening for diabetes mellitus; Screening, lipid 06/07/2024 Telephone Adult [address] [phone] Jennifer Alvarez PA from Last 3 Months [...] for your loved ones. For example, child study team director or elderly care for an older [...] 4:00 PM EDT Office Visit Adult Medicine [address] [phone] Alhaji Lizarraga MD [address] [place] [phone] Health Maintenance Due Date Last Done Comments Hepatitis B Vaccines (1 of 3 - 19+ 3-dose series) 2004 Cholesterol Screening (Lipid Panel) 01/17/2022 HIV Screening 01/17/2022 Hepatitis C Screening 01/17/2022 COVID-19 Vaccine ( - 2023-2 5 season) 2023 Influenza Vaccine (#1) 2024 Social Influencers of Health Screening 06/07/2025 06/07/2024 DTaP,Tdap,and Td Vaccines (2 - Td or Tdap) 10/12/2030 10/12/2020 Depression Screening Completed 06/07/2024 HIB Vaccines Aged Out No longer eligi [...] complete this topic Insurance MEDICA[place] - [place] [facility] CIGNA Care Teams Channel Cementer Insole Machine Relationship Specialty Start Date End Date Alhaji Lizarraga MD [address] [place] [address] PCP - General Internal Medicine 07/07/21
--- OUTSIDE RECORDS SUMMARY | 2024-09-03 09:23 | XMS_ITS | Encounter Summary ---
Author Organization [employer] Address [address] [facility] [address] [place] [address] Care Team Providers Care Welder Metal Fab Name Role Phone Unavailable Primary Care Provider Unavailabl e Encounter Details Date Type Department Care Team (Late st Contact Info) Description 03/10/2023 Abstract [facility] [address] [place], [place] [phone] Cleo Burroughs BDS [address] [place], [place] [phone] Social History Tobacco Use Types Packs/Day Years [...]
== END 2024-08-31 09:08 | disposition home or self-care (01) ==
LOC: HO.HOSX 09:07
PROVIDERS: Visit Provider Physician Assistant
DX: M19.171 Post-traumatic osteoarthritis, right ankle and foot (principal); M21.41 Flat foot [pes planus] (acquired), right foot; M21.42 Flat foot [pes planus] (acquired), left foot; Z87.81 Personal history of (healed) traumatic fracture; Z98.890 Other specified postprocedural states
CPT/HCPCS: 73610